=== PATIENT | male | born 1980 | race Caucasian/White ===

== ENCOUNTER → 2017-01-29 13:44 | Emergency (ER) | payer BC, OTHER ==
[~2017-01-29 13:44] MED LIST: Ibuprofen TAB* 800 MG PO ONE
[2017-01-29 14:00] VITALS: BP 128/87
--- NOTE | 2017-01-29 16:36 | RAD ---
Indication: Progressive RIGHT shoulder pain for one week. Possible rotator cuff tear. Unknown injury. Comparison: No relevant prior exams available on the [facility] PACS for comparison. Technique: Internal rotation AP, external rotation Grashey, scapular Y, axillary views RIGHT shoulder Report: Normal acromioclavicular and glenohumeral joint alignment. Negative for fracture. Mild acromioclavicular joint osteophytosis and subchondral sclerosis and cystic change. Mild sclerosis at the greater tuberosity of the humerus which may be seen in setting of chronic rotator cuff pathology. Negative for glenohumeral joint space narrowing. Negative for stigmata of calcific tendinopathy or abnormal soft tissue contour. IMPRESSION: 1. 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 2. Stigmata of potential chronic rotator cuff pathology.
--- NOTE | 2017-01-29 17:00 | ED ---
Upper Extremity Pain - HPI Summary HPI Summary: Rt hand dominant pt here w/ Rt shoulder pain - worse w/ abduction and flexion past 90 degrees. No marc trauma - just getting progressively worse over past few weeks. Thinks he may have torn something. 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 Denies neck pain or skin changes - no change. Tried girlfriend's tramadol for pain w/o relief - unsure of dose. States marijuana and heat help sometimes as well. Has pain at night trying to sleep. - History of Current Complaint Chief Complaint: EDExtremityUpper Stated Complaint: RT SHOULDER PAIN Time Seen by Provider: 01/29/17 15:21 Hx Obtained From: Patient - Allergies/Home Medications Allergies/Adverse Reactions: Allergies Allergy/AdvReac Type Severity Reaction Status Date / Time Codeine Allergy Severe Anaphylatic Verified 01/29/17 13:52 Shock Iodine Allergy Hives Verified 01/29/17 13:52 Latex Allergy Skin Verified 01/29/17 13:52 Irritation Povidone Iodine Allergy Hives Verified 01/29/17 13:52 [From Betadine] PMH/Surg Hx/FS Hx/Imm Hx Previously Healthy: Yes Endocrine/Hematology History: Denies: Hx Anticoagulant Therapy, Hx Blood Disorders, Hx Diabetes, Hx Sickle Cell Disease, Hx Thyroid Disease Cardiovascular History: Reports: Hx Hypertension - WELL CONTROLLED Denies: Other Cardiovascular Problems/Disorders Respiratory History: Denies: Hx Asthma, Hx Chronic Obstructive Pulmonary Disease (COPD), Other Respiratory Problems/Disorders GI History: Reports: Hx Gastroesophageal Reflux Disease - SURGERY AGE 16 Denies: Hx Ulcer, Other GI Disorders History: Reports: Hx Kidney Stones - BILAT Musculoskeletal History: Denies: Other Musculoskeletal History Sensory History: Reports: Hx Contacts or Glasses - CONTACTS, WILL USE GLASSES DOS Denies: Hx Hearing Aid Opthamlomology History: Reports: Hx Contacts or Glasses - CONTACTS, WILL USE GLASSES DOS Neurological History: Reports: Hx Migraine - OCCAS Denies: Other Neuro Impairments/Disorders Psychiatric History: Reports: Hx Anxiety - ON MED, Hx Depression - ON MED - Surgical History Surgery Procedure, Year, and Place: RIGHT MASTOID SURGERY 20 YRS AGO, [facility] "STOMACH WRAP" @ AGE 16, [facility]. LITHOTRIPSY X2 [facility]. CYSTO STENT [facility] Hx Anesthesia Reactions: No Infectious Disease History: No Infectious Disease History: Denies: Hx Hepatitis, Hx Human Immunodeficiency Virus (HIV), Traveled Outside the [place] in Last 30 Days - Social History Lives: With Family Alcohol Use: Rare Hx Substance Use: Yes Substance Use Type: Reports: Marijuana Substance Use Comment - Amount & Last Used: DAILY USE OF MARIJUANA Hx Tobacco Use: Yes Smoking Status (MU): Never Smoked Tobacco Type: Smokeless Tobacco Review of Systems Constitutional: Negative Negative: Fever, Chills, Fatigue Musculoskeletal: Other - see HPI Skin: Negative Negative: Rash, Bruising Neurological: Other - see HPI Psychological: Normal All Other Systems Reviewed And Are Negative: Yes Physical Exam Triage Information Reviewed: Yes Vital Signs On Initial Exam: Initial Vitals Temp Pulse Resp BP Pulse Ox 98.4 F 67 16 128/87 98 01/29/17 13:52 01/29/17 13:52 01/29/17 13:52 01/29/17 13:52 01/29/17 13:52 Vital Signs Reviewed: Yes Appearance: Positive: Well-Appearing, No Pain Distress - at rest, Obese Skin: Positive: Warm, Dry - no erythema, no ecchymosis over affected area Head/Face: Positive: Normal Head/Face Inspection Eyes: Positive: EOMI ENT: Positive: Hearing grossly normal Respiratory/Lung Sounds: Positive: Breath Sounds Present Cardiovascular: Positive: Pulses are Symmetrical in both Upper and Lower Extremities - no edema of Rt UE Musculoskeletal: Positive: Strength/ROM Intact - Rt elbow, wrist and fingers, Limited @ - Rt shoulder limited 2ndry to pain - active ROM past 90 degrees abduction triggers significant pain. Negative: Other - NTTP Neurological: Positive: Normal, Sensory/Motor Intact, Alert, Oriented to Person Place, Time, CN Intact II-III Psychiatric: Positive: Normal - Orsi Coma Scale Coma Scale Total: 15 Diagnostics - Vital Signs Vital Signs Temp Pulse Resp BP Pulse Ox 01/29/17 13:52 98.4 F 67 16 128/87 98 - Laboratory Lab Statement: Any lab studies that have been ordered have been reviewed, and results considered in the medical decision making process. Re-Evaluation - Re-Evaluation First Eval Change: Improved - better w/ ice, sling and ibuprofen Course/Dx - Diagnoses Provider Diagnoses: Injury of right rotator cuff Discharge - Discharge Plan Condition: Stable Disposition: HOME Prescriptions: Ibuprofen TAB* [Motrin TAB* 800 MG] 800 mg PO Q8HR PRN #20 tab PRN Reason: Pain oxyCODONE/Acetamin 5/325 MG* [Percocet 5/325 TAB*] 1 tab PO Q8H PRN #10 tab MDD 3 PRN Reason: Pain Patient Education Materials: Rotator Cuff Injury (ED) Forms: *Work Release Referrals: Andie Hayes MD [Primary Care Provider] - Madai Pope MD [Medical Doctor] - Additional Instructions: Rest in sling while up and about - otherwise remove and gently move shoulder to prevent frozen shoulder (aka Adhesive Capsulitis) Follow-up with orthopedics. Call today to schedule an appointment. In the meantime, you may take ibuprofen with food for pain. *If pain is not controlled enough to sleep, you may take norco - this is a narcotic pain med and may cause habituation. If you feel you are developing dependence, please stop medication and seek medical attention. This medication may cause drowsiness - do not operate machinery, climb, etc while taking. *If you develop numbness, weakness, coolness of extremity, return to ED
== END | disposition home or self-care (01) ==
LOC: ED 13:44
DX: S46.001A Unspecified injury of muscle(s) and tendon(s) of the rotator cuff of right shoulder, initial encounter (principal); X58.XXXA Exposure to other specified factors, initial encounter; Y92.9 Unspecified place or not applicable; I10 Essential (primary) hypertension; K21.9 Gastro-esophageal reflux disease without esophagitis; F41.8 Other specified anxiety disorders
CPT/HCPCS: A9270-GY

== ENCOUNTER 2017-07-29 15:29 | Emergency (ER) | payer BC ==
[2017-07-29] MEDS ORDERED: Nitroglycerin TAB 0.4 MG* 0.4 MG TAB SL ONE (15:54)
[2017-07-29] MEDS ORDERED: Aspirin Low Dose CHEW TAB* 81 MG PO ONE (15:54)
[2017-07-29] MEDS ORDERED: Nitroglycerin TAB 0.4 MG* 0.4 MG TAB ONE (15:54)
[2017-07-29] MEDS ORDERED: Aspirin Low Dose CHEW TAB* 81 MG ONE (15:55)
[2017-07-29 16:22] VITALS: BP 138/90
--- NOTE | 2017-07-29 18:56 | UC ---
Ander Marin Rebecca, scribed for Jerrod Weir MD on 07/29/17 at 1619 . Cardiac HPI - HPI Summary HPI Summary: Pt is a 36 y/o M who presents to [facility] c/o CP. Pain began this morning, waking him up from sleep at approximately 0900. At onset, pain was moderate, ranked 6/ 10 and described as pressure and heaviness. Pain is located on the left side of the chest without radiation to the back, jaw, and arm. Pain has been constant since onset without change. Sx aggravated and alleviated by nothing. Additionally c/o nausea, SOB and anxiety. Denies vomiting. PMHx HTN, HLD, and pre-diabetic. FHx CAD (father at age 28). SHx no smoking, rare alcohol intake and marijuana use. PSHx hiatal hernia repair. 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 Accompanied by significant other that can transport the patient to the ED. - History of Current Complaint Stated Complaint: ANXIOUS Time Seen by Provider: 07/29/17 15:47 Hx Obtained From: Patient Onset/Duration: Still Present Timing: Constant Initial Severity: Moderate Current Severity: Moderate Pain Intensity: 6 Chest Pain Location: Left Anterior Character: Heaviness, Pressure/Squeezing Aggravating Factor(s): Nothing Alleviating Factor(s): Nothing Associated Signs & Symptoms: Positive: Chest Pain, SOB, Nausea/Vomiting - nausea - Allergy/Home Medications Allergies/Adverse Reactions: Allergies Allergy/AdvReac Type Severity Reaction Status Date / Time codeine Allergy Anaphylatic Verified 07/29/17 16:46 Shock Iodine and Iodide Containing Allergy Hives Verified 07/29/17 16:46 Produc Latex, Natural Rubber Allergy Rash Verified 07/29/17 16:46 Home Medications: Home Medications FLUoxetine CAP* [PROzac CAP*] 80 mg PO DAILY 07/29/17 [History Confirmed ] Ibuprofen TAB* [Motrin TAB* 800 MG] 800 mg PO PRN 07/29/17 [History] PMH/Surg Hx/FS Hx/Imm Hx - Additional Past Medical History Additional PMH: PMHx: HTN, HLD, pre-diabetic Other History Of: Negative For: Anticoagulant Therapy - Surgical History Surgical History: Yes Surgery Procedure, Year, and Place: RIGHT MASTOID SURGERY 20 YRS AGO, [place]. "STOMACH WRAP" @ AGE 16, [facility] [place]. LITHOTRIPSY X2 [facility]. CYSTO STENT [facility] - Family History Known Family History: Positive: Cardiac Disease - Father had STEMI at 28 y/o - Social History Alcohol Use: Rare Substance Use Type: Marijuana Substance Use Comment - Amount & Last Used: DAILY USE OF MARIJUANA Smoking Status (MU): Never Smoked Tobacco Type: Smokeless Tobacco Review of Systems Constitutional: Negative Skin: Negative Eyes: Negative ENT: Negative Respiratory: Shortness Of Breath Cardiovascular: Chest Pain Gastrointestinal: Nausea Genitourinary: Negative Motor: Negative Neurovascular: Negative Musculoskeletal: Negative Neurological: Negative Psychological: Anxious All Other Systems Reviewed And Are Negative: Yes Physical Exam - Summary Physical Exam Summary: VITAL SIGNS: Reviewed. GENERAL: ~Patient is a well developed and mildly obese male who is lying comfortable in the stretcher. ~Patient is not in any acute respiratory distress. HEAD AND FACE: Normocephalic EYES: PERRLA, EOMI x 2. EARS: Hearing grossly intact. MOUTH: Oropharynx within normal limits. NECK: Supple, trachea is midline, no adenopathy, no JVD, no carotid bruit. CHEST: Symmetric, no tenderness at palpation LUNGS: Clear to auscultation bilaterally. No wheezing or crackles. CVS: Regular rate and rhythm, S1 and S2 present, no murmurs or gallops appreciated. ABDOMEN: Soft, non-tender. Bowel sounds are normal. No abdominal abnormal pulsations. EXTREMITIES: Full ROM in all major joints, no edema, no cyanosis or clubbing. NEURO: Alert and oriented x 3. No acute neurological deficits. Speech is normal and follows commands. SKIN: Dry and warm Triage Information Reviewed: Yes Vital Signs: Initial Vital Signs Temp 98.2 F 07/29/17 15:49 Pulse 88 07/29/17 15:49 Resp 16 07/29/17 15:49 BP 141/95 07/29/17 15:49 Pulse Ox 94 07/29/17 15:49 Vital Signs Reviewed: Yes Diagnostics - EKG Cardiac Rate: NL - sinus rhythm 71 BPM Cardiac Rhythm: Sinus: Normal Ectopy: None ST Segment: Normal - No ST elevations - Assessment/Plan Course Of Treatment: Pt is a 36 y/o M who presents to [facility] c/o since morning, waking him up from sleep at approximately 0900. At onset, pain was moderate, ranked 6/10 and described as pressure and heaviness. Pain is located on the left side of the chest without radiation to the back, jaw, and arm. Pain has been constant since onset without change. Additionally c/o nausea, SOB and anxiety. Denies vomiting. PMHx HTN, HLD, and pre-diabetic. FHx CAD (father at age 28). SHx no smoking, rare alcohol intake and marijuana use. PSHx hiatal hernia repair. 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 Accompanied by significant other that can transport the patient to the ED. EKG is sinus rhythm with no ST elevations. In the [facility]CE[facility] course, pt received ASA and NTG. Patient declined ambulance transport. He will be D/C with Dx of CP r/o ACS with directions to go immediately to the ED for further evaluation and workup. He and his girlfriend understand and agree. Allergies noted. The patient was found to have increase BP in UC. The patient will follow up with PCP for better control of BP. - Differential Diagnoses - Chest Pain Differential Diagnosis/HQI/PQRI: Acute NH, ACS, Angina, CHF, Chest Wall, GI Disease, Lower Respiratory Infection - Clinical Impression Provider Diagnoses: Chest pain r/o ACS - Physician Notifications Discussed Patient Care With: [facility] ED Time Discussed With Above Provider: 15:57 Instructed by Provider To: Other - Discussed case with the current doctor at the ED, making him aware of the patient. Discharge - Sign-Out/Discharge Documenting (check all that apply): Discharge - Discharge Plan Condition: Stable Disposition: HOME Patient Education Materials: Angina (ED), Chest Pain (DC) Referrals: Mp Coffman MD [Primary Care Provider] - Additional Instructions: FOLLOW UP WITH YOUR PRIMARY CARE PROVIDER WITHIN ONE WEEK FOR HIGH BLOOD PRESSURE NOTED TODAY. Patient will be discharged to the ED for further assessment. Declined ambulance. - Billing Disposition and Condition Condition: STABLE Disposition: HOME The documentation as recorded by the Ander raygoza Rebecca accurately reflects the service I personally performed and the decisions made by me, Jerrod Weir MD.
== END 2017-07-29 16:22 | disposition home or self-care (01) ==
LOC: UCEAST 15:29
DX: R07.89 Other chest pain (principal); R06.02 Shortness of breath; R11.0 Nausea; F41.9 Anxiety disorder, unspecified; I10 Essential (primary) hypertension; R73.03 Prediabetes; E78.6 Lipoprotein deficiency; Z88.5 Allergy status to narcotic agent; Z88.3 Allergy status to other anti-infective agents; Z91.040 Latex allergy status
CPT/HCPCS: 93005; 99212; A9270-GY; G0463

== ENCOUNTER 2017-07-29 16:31 | Emergency (ER) | payer BC ==
--- NOTE | 2017-07-29 17:23 | RAD ---
HISTORY: Chest pain COMPARISONS: February 15, 2014 VIEWS: 1: frontal portable view of the chest at 5:18 PM FINDINGS: LINES AND TUBES: None. CARDIOMEDIASTINAL SILHOUETTE: The cardiomediastinal silhouette is normal for portable technique. PLEURA: The costophrenic angles are sharp. No pleural abnormalities are noted. LUNG PARENCHYMA: The lungs are clear. ABDOMEN: The upper abdomen is clear. There is no subphrenic gas. BONES AND SOFT TISSUES: No bone or soft tissue abnormalities are noted. IMPRESSION: NO ACTIVE CARDIOPULMONARY DISEASE.
[2017-07-29 17:28] LABS: ABS Basophils 0.1 10^3/ul (0-0.2); ABS Eosinophils 0.2 10^3/ul (0-0.6); ABS Lymphocytes 2.8 10^3/ul (1.0-4.8); ABS Monocytes 0.8 10^3/ul (0-0.8); ABS Neutrophils 5.6 10^3/ul (1.5-7.7); ABS Nucleated RBC 0 10^3/ul; Eosinophil % 1.9 % (0-6); Hematocrit 44 % (42-52); Hemoglobin 15.1 g/dl (14.0-18.0); Lymphocyte % 29.4 % (25-47); Mean Corpuscular HGB Conc 34 g/dl (31-36); Mean Corpuscular Hemoglobin 30 pg (27-31); Mean Corpuscular Volume 87 fL (80-94); Nucleated Red Blood Cells % 0; Platelet Count 234 10^3/ul (150-450); Red Cell Distribution Width 14 % (10.5-15); White Blood Count 9.4 10^3/ul (3.5-10.8)
[2017-07-29 17:45] LABS: EGFR Non-African American 80.8 (>60)
[2017-07-29 18:34] VITALS: BP 146/83
--- NOTE | 2017-07-29 19:24 | ED ---
Jose Guadalupe Marin Julia, scribed for Eusebio Burroughs MD on 07/29/17 at 1656 . HPI Chest Pain - HPI Summary HPI Summary: This patient is a 36 year old M presenting to [facility] with a chief complaint of constant mid-sternal chest pain described as discomfort and heaviness since this morning that woke him up from sleep around 09:00. Patient reports SOB and nausea. The patient rates the pain 5/10 in severity. Patient believes he is having a panic attack because symptoms are similar to previous panic attacks. His fathers first NC was at age 28. He reports recent stress with dad dying of colon CA and additional stress at work. He states he usually has relief from panic attack symptoms with Xanax, but he does not have a current prescription because he just began with a new primary care provider, Dr. Coffman, a couple weeks ago. Patient has a history of HTN, depression, borderline diabetes , and high cholesterol. - History of Current Complaint Chief Complaint: EDChestPainROMI Time Seen by Provider: 07/29/17 16:51 Hx Obtained From: Patient Onset/Duration: Started Hours Ago Time of Onset: 09:00 Timing: Constant Pain Intensity: 5 Pain Scale Used: 0-10 Numeric Chest Pain Location: Mid Sternal Character: Heaviness - and discomfort Associated Signs and Symptoms: Positive: Chest Pain, Shortness of Breath, Nausea Related History: Similar Episode/Dx as: - panic attack - Allergy/Home Medications Allergies/Adverse Reactions: Allergies Allergy/AdvReac Type Severity Reaction Status Date / Time codeine Allergy Anaphylatic Verified 07/29/17 16:46 Shock Iodine and Iodide Containing Allergy Hives Verified 07/29/17 16:46 Produc Latex, Natural Rubber Allergy Rash Verified 07/29/17 16:46 PMH/Surg Hx/FS Hx/Imm Hx Endocrine/Hematology History: Reports: Hx Diabetes - PRE-DIABETIC Denies: Hx Anticoagulant Therapy, Hx Blood Disorders, Hx Sickle Cell Disease , Hx Thyroid Disease Cardiovascular History: Reports: Hx Hypercholesterolemia, Hx Hypertension - WELL CONTROLLED Denies: Other Cardiovascular Problems/Disorders Respiratory History: Denies: Hx Asthma, Hx Chronic Obstructive Pulmonary Disease (COPD), Other Respiratory Problems/Disorders GI History: Reports: Hx Gastroesophageal Reflux Disease - SURGERY AGE 16 Denies: Hx Ulcer, Other GI Disorders History: Reports: Hx Kidney Stones - BILAT Musculoskeletal History: Denies: Other Musculoskeletal History Sensory History: Reports: Hx Contacts or Glasses - CONTACTS, WILL USE GLASSES DOS Denies: Hx Hearing Aid Opthamlomology History: Reports: Hx Contacts or Glasses - CONTACTS, WILL USE GLASSES DOS Neurological History: Reports: Hx Migraine - OCCAS Denies: Other Neuro Impairments/Disorders Psychiatric History: Reports: Hx Anxiety - ON MED, Hx Depression - ON MED - Surgical History Surgery Procedure, Year, and Place: RIGHT MASTOID SURGERY 20 YRS AGO, [place] AGE 16[place] [facility] [place] [facility]. [facility]STO STENT [facility] Hx Anesthesia Reactions: No Infectious Disease History: Yes Infectious Disease History: Reports: Hx Shingles Denies: Hx Hepatitis, Hx Human Immunodeficiency Virus (HIV), Traveled Outside the [place] in Last 30 Days - Family History Known Family History: Positive: Cardiac Disease - father - NC age 28, Other - father - colon CA - Social History Occupation: Employed Full-time - works evenings Lives: With Family Alcohol Use: Rare Hx Substance Use: Yes Substance Use Type: Reports: Marijuana Substance Use Comment - Amount & Last Used: DAILY USE OF MARIJUANA Hx Tobacco Use: Yes Smoking Status (MU): Never Smoked Tobacco Type: Smokeless Tobacco Review of Systems Positive: Chest Pain Positive: Shortness Of Breath Positive: Nausea All Other Systems Reviewed And Are Negative: Yes Physical Exam - Summary Physical Exam Summary: Appearance: The patient is well-nourished in no acute distress and in no acute pain. Skin: The skin is warm and dry and skin color reflects adequate perfusion. HEENT: The head is normocephalic and atraumatic. The pupils are equal and reactive. The conjunctivae are clear and without drainage. Nares are patent and without drainage. Mouth reveals moist mucous membranes and the throat is without erythema and exudate. The external ears are intact. The ear canals are patent and without drainage. The tympanic membranes are intact. Neck: the neck is supple with full range of motion and non-tender. There are no carotid bruits. There is no neck vein distension. Respiratory: Chest is non-tender. Lungs are clear to auscultation and breath sounds are symmetrical and equal. Cardiovascular: Heart is regular rate and rhythm. There is no murmur or rub auscultated. There is no peripheral edema and pulses are symmetrical and equal. Abdomen: The abdomen is soft and non-tender. There are normal bowel sounds heard in all four quadrants and there is no organomegaly palpated. Musculoskeletal: There is no back tenderness noted. Extremities are non-tender with full range of motion. There is good capillary refill. There is no peripheral edema or calf tenderness elicited. Neurological: Patient is alert and oriented to person, place and time. The patient has symmetrical motor strength in all four extremities. Cranial nerves are grossly intact. Deep tendon reflexes are symmetrical and equal in all four extremities. Psychiatric: The patient has an appropriate affect and does not exhibit any anxiety or depression. Triage Information Reviewed: Yes Vital Signs On Initial Exam: Initial Vitals Temp Pulse Resp BP Pulse Ox 97.8 F 79 16 118/84 98 07/29/17 16:42 07/29/17 16:42 07/29/17 16:42 07/29/17 16:42 07/29/17 16:42 Vital Signs Reviewed: Yes Diagnostics - Vital Signs Vital Signs Temp Pulse Resp BP Pulse Ox 07/29/17 16:42 97.8 F 79 16 118/84 98 - Laboratory Lab Results: Lab Results 07/29/17 07/29/17 07/29/17 Range/Units 17:20 17:20 17:20 WBC 9.4 (3.5-10.8) 10^3/ul RBC 5.10 (4.0-5.4) 10^6/ul Hgb 15.1 (14.0-18.0) g/dl Hct 44 (42-52) % MCV 87 (80-94) fL MCH 30 (27-31) pg MCHC 34 (31-36) g/dl RDW 14 (10.5-15) % Plt Count 234 (150-450) 10^3/ul MPV 8.0 (7.4-10.4) um3 Neut % (Auto) 59.1 (38-83) % Lymph % (Auto) 29.4 (25-47) % [place] % (Auto) 8.6 H (0-7) % Eos % (Auto) 1.9 (0-6) % Baso % (Auto) 1.0 (0-2) % Absolute Neuts (auto) 5.6 (1.5-7.7) 10^3/ul Absolute Lymphs (auto) 2.8 (1.0-4.8) 10^3/ul Absolute Monos (auto) 0.8 (0-0.8) 10^3/ul Absolute Eos (auto) 0.2 (0-0.6) 10^3/ul Absolute Basos (auto) 0.1 (0-0.2) 10^3/ul Absolute Nucleated RBC 0 10^3/ul Nucleated RBC % 0 D-Dimer, Quantitative (Less Than 230) ng/mL Sodium 137 (133-145) mmol/L Potassium 3.8 (3.5-5.0) mmol/L Chloride 106 (101-111) mmol/L Carbon Dioxide 22 (22-32) mmol/L Anion Gap 9 (2-11) mmol/L BUN 19 (6-24) mg/dL Creatinine 1.03 (0.67-1.17) mg/dL Est GFR ( Amer) 103.9 (>60) Est GFR (Non-Af Amer) 80.8 (>60) BUN/Creatinine Ratio 18.4 (8-20) Glucose 96 (70-100) mg/dL Lactic Acid (0.5-2.0) mmol/L Calcium 10.3 (8.6-10.3) mg/dL Total Bilirubin 0.40 (0.2-1.0) mg/dL AST 32 (13-39) U/L ALT 59 H (7-52) U/L Alkaline Phosphatase 61 (34-104) U/L Troponin I 0.00 (<0.04) ng/mL B-Natriuretic Peptide 22 ( - 100) pg/mL Total Protein 7.1 (6.4-8.9) g/dL Albumin 4.5 (3.2-5.2) g/dL Globulin 2.6 (2-4) g/dL Albumin/Globulin Ratio 1.7 (1-3) TSH 1.36 (0.34-5.60) mcIU/mL 07/29/17 07/29/17 Range/Units 17:20 17:20 WBC (3.5-10.8) 10^3/ul RBC (4.0-5.4) 10^6/ul Hgb (14.0-18.0) g/dl Hct (42-52) % MCV (80-94) fL MCH (27-31) pg MCHC (31-36) g/dl RDW (10.5-15) % Plt Count (150-450) 10^3/ul MPV (7.4-10.4) um3 Neut % (Auto) (38-83) % Lymph % (Auto) (25-47) % [place] % (Auto) (0-7) % Eos % (Auto) (0-6) % Baso % (Auto) (0-2) % Absolute Neuts (auto) (1.5-7.7) 10^3/ul Absolute Lymphs (auto) (1.0-4.8) 10^3/ul Absolute Monos (auto) (0-0.8) 10^3/ul Absolute Eos (auto) (0-0.6) 10^3/ul Absolute Basos (auto) (0-0.2) 10^3/ul Absolute Nucleated RBC 10^3/ul Nucleated RBC % D-Dimer, Quantitative < 200 (Less Than 230) ng/mL Sodium (133-145) mmol/L Potassium (3.5-5.0) mmol/L Chloride (101-111) mmol/L Carbon Dioxide (22-32) mmol/L Anion Gap (2-11) mmol/L BUN (6-24) mg/dL Creatinine (0.67-1.17) mg/dL Est GFR ( Amer) (>60) Est GFR (Non-Af Amer) (>60) BUN/Creatinine Ratio (8-20) Glucose (70-100) mg/dL Lactic Acid 1.1 (0.5-2.0) mmol/L Calcium (8.6-10.3) mg/dL Total Bilirubin (0.2-1.0) mg/dL AST (13-39) U/L ALT (7-52) U/L Alkaline Phosphatase (34-104) U/L Troponin I (<0.04) ng/mL B-Natriuretic Peptide ( - 100) pg/mL Total Protein (6.4-8.9) g/dL Albumin (3.2-5.2) g/dL Globulin (2-4) g/dL Albumin/Globulin Ratio (1-3) TSH (0.34-5.60) mcIU/mL Result Diagrams: 07/29/17 17:20 07/29/17 17:20 Lab Statement: Any lab studies that have been ordered have been reviewed, and results considered in the medical decision making process. - Radiology CXR Radiology Interpretation Completed By: Radiologist - NO ACTIVE CARDIOPULMONARY DISEASE. ED Physician has reviewed this report. - EKG 1652 Cardiac Rate: NL - 72 BPM EKG Rhythm: Sinus Rhythm Re-Evaluation - Re-Evaluation 1 Re-Evaluation Time: 18:23 Comment: Discussed results with patient. Patient will be discharged. Chest Pain Course/Dx - Course Course Of Treatment: Mr. Feliciano presented with an atypical CP and a normal ECG. He has a significant family history. His W/U here was negative and he has had pain for over 8 hours. - Diagnoses Provider Diagnoses: Chest pain Discharge - Sign-Out/Discharge Documenting (check all that apply): Discharge - Discharge Plan Condition: Stable Disposition: HOME Patient Education Materials: Chest Pain (ED) Forms: *Work Release Referrals: Mp Coffman MD [Primary Care Provider] - As Soon As Possible (Follow up with your primary care physician.) - Billing Disposition and Condition Condition: STABLE Disposition: HOME The documentation as recorded by the Jose Guadalupe raygoza Julia accurately reflects the service I personally performed and the decisions made by me, Eusebio Burroughs MD.
== END 2017-07-29 18:31 | disposition home or self-care (01) ==
LOC: ED 16:31
DX: R07.9 Chest pain, unspecified (principal); R06.02 Shortness of breath; R11.0 Nausea
CPT/HCPCS: 36415; 71045; 80053; 83605; 83880; 84443; 84484; 85025; 85379; 93005; 99282

== ENCOUNTER 2017-09-14 14:51 | Emergency (ER) | payer BC ==
--- NOTE | 2017-09-14 20:16 | RAD ---
INDICATION: 2 weeks of back pain and "legs giving out" COMPARISON: None. TECHNIQUE: 3 views of the lumbar spine were obtained. FINDINGS: The vertebra are in normal alignment. No fracture is seen. Disc spaces appear maintained. IMPRESSION: No evidence of fracture or subluxation.
[2017-09-14 20:41] VITALS: BP 133/68
--- NOTE | 2017-09-14 23:00 | ED ---
Back Pain - HPI Summary HPI Summary: Patient is a 36-year-old male who presents emergency department for low back pain 2 weeks. Patient states he has had similar back pain in the past. Pain is located across low back and radiates into bilateral legs. Patient mitts intermittent tingling to left upper leg that is positional. He denies bowel or bladder incontinence or retention. Has tried taking Motrin for pain with minimal relief. Symptoms are mild in severity. 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 Bending and twisting makes symptoms worse. Lying flat makes symptoms better. - History of Current Complaint Chief Complaint: EDBackInjuryPain Stated Complaint: BACK PAIN Time Seen by Provider: 09/14/17 19:07 Hx Obtained From: Patient Pain Intensity: 0 Pain Scale Used: 0-10 Numeric - Allergies/Home Medications Allergies/Adverse Reactions: Allergies Allergy/AdvReac Type Severity Reaction Status Date / Time codeine Allergy Anaphylatic Verified 09/14/17 14:57 Shock Iodine and Iodide Containing Allergy Hives Verified 09/14/17 14:57 Produc Latex, Natural Rubber Allergy Rash Verified 09/14/17 14:57 PMH/Surg Hx/FS Hx/Imm Hx Previously Healthy: Yes Endocrine/Hematology History: Reports: Hx Diabetes - PRE-DIABETIC Denies: Hx Anticoagulant Therapy, Hx Blood Disorders, Hx Sickle Cell Disease , Hx Thyroid Disease Cardiovascular History: Reports: Hx Hypercholesterolemia, Hx Hypertension - WELL CONTROLLED Denies: Other Cardiovascular Problems/Disorders Respiratory History: Denies: Hx Asthma, Hx Chronic Obstructive Pulmonary Disease (COPD), Other Respiratory Problems/Disorders GI History: Reports: Hx Gastroesophageal Reflux Disease - SURGERY AGE 16 Denies: Hx Ulcer, Other GI Disorders History: Reports: Hx Kidney Stones - BILAT Musculoskeletal History: Denies: Other Musculoskeletal History Sensory History: Reports: Hx Contacts or Glasses - CONTACTS, WILL USE GLASSES DOS Denies: Hx Hearing Aid Opthamlomology History: Reports: Hx Contacts or Glasses - CONTACTS, WILL USE GLASSES DOS Neurological History: Reports: Hx Migraine - OCCAS Denies: Other Neuro Impairments/Disorders Psychiatric History: Reports: Hx Anxiety - ON MED, Hx Depression - ON MED - Surgical History Surgery Procedure, Year, and Place: RIGHT MASTOID SURGERY 20 YRS AGO, [facility] "STOMACH WRAP" @ AGE 16, [facility]. LITHOTRIPSY X2 [facility]. CYSTO STENT [facility] Hx Anesthesia Reactions: No Infectious Disease History: No Infectious Disease History: Reports: Hx Shingles Denies: Hx Hepatitis, Hx Human Immunodeficiency Virus (HIV), Traveled Outside the [place] in Last 30 Days - Family History Known Family History: Positive: Cardiac Disease - father - [place] age 28, Other - father - colon [place] - Social History Occupation: Employed Full-time Lives: With Family Alcohol Use: Occasionally Hx Substance Use: Yes Substance Use Type: Reports: Marijuana Substance Use Comment - Amount & Last Used: DAILY USE OF MARIJUANA Hx Tobacco Use: Yes Smoking Status (MU): Never Smoked Tobacco Type: Smokeless Tobacco Review of Systems Constitutional: Negative Negative: Fever, Chills Genitourinary: Negative Negative: incontinence Positive: Other - back pain Positive: Paresthesia. Negative: Weakness, Numbness All Other Systems Reviewed And Are Negative: Yes Physical Exam Triage Information Reviewed: Yes Vital Signs On Initial Exam: Initial Vitals Temp Pulse Resp BP Pulse Ox 97.8 F 84 16 130/103 98 09/14/17 14:52 09/14/17 14:52 09/14/17 14:52 09/14/17 14:52 09/14/17 14:52 Vital Signs Reviewed: Yes Appearance: Positive: Well-Appearing - Patient lying flat on bed in no acute distress. Head/Face: Positive: Normal Head/Face Inspection Eyes: Positive: Normal, GONZALO Neck: Positive: Supple Musculoskeletal: Positive: Other - Pain on palpation to the low mid back and bilateral SI joints. 5 out of 5 strength in bilateral lower extremities with flexion and dorsiflexion. Positive straight leg test bilaterally. No neurosensory deficits. Patient ambulating without difficulty. Neurological: Positive: Normal, CN Intact II-III Psychiatric: Positive: Normal Diagnostics - Vital Signs Vital Signs Temp Pulse Resp BP Pulse Ox 09/14/17 20:35 98.1 F 77 16 133/68 98 09/14/17 17:17 98.4 F 80 16 118/78 99 09/14/17 14:52 97.8 F 84 16 130/103 98 - Laboratory Lab Statement: Any lab studies that have been ordered have been reviewed, and results considered in the medical decision making process. Back Pain Course/Dx - Course Course Of Treatment: Patient presenting to the ER for atraumatic back pain. Patient is requesting an x-ray of his lumbar spine which was ordered and is negative for acute findings, reading per radiology. Suspect disc herniation. Patient has no evidence of cough syndrome. He is afebrile. Will rx pain medication steroids and muscle relaxer. Advised patient to call his family doctor tomorrow for close follow-up appointment for further evaluation and possible MRI in the future. He is to avoid heavy lifting. To return to ER symptoms change or worsen. She understands and agrees with plan. - Diagnoses Differential Diagnosis/HQI/PQRI: Positive: Arthritis, Herniated Disc, Strain, Sprain Provider Diagnoses: Lumbar strain Discharge - Sign-Out/Discharge Documenting (check all that apply): Discharge/Admit/Transfer - Discharge Plan Condition: Good Disposition: HOME Prescriptions: Cyclobenzaprine TAB* [Flexeril 10 MG TAB*] 10 mg PO TID PRN #12 tab PRN Reason: Pain Hydrocodone/Acetaminophen [Hydrocodone-Acetamin 5-325 mg] 1 each PO Q6H #12 tablet MDD 4 TABLETS methylPREDNISolone [Medrol Dosepak 4 MG*] 0 mg PO .SEE BJ INSTRUCTION #1 tab Patient Education Materials: Lumbar Disc Herniation (ED), Low Back Strain (ED) Forms: *Work Release Referrals: Mp Coffman MD [Primary Care Provider] - Additional Instructions: Call PCP tomorrow for an appointment Medications as directed Return to ER if symptoms change or worsen - Billing Disposition and Condition Condition: GOOD Disposition: HOME
== END 2017-09-14 20:35 | disposition home or self-care (01) ==
LOC: ED 14:51
DX: S39.012A Strain of muscle, fascia and tendon of lower back, initial encounter (principal); M54.9 Dorsalgia, unspecified; Z72.0 Tobacco use; X58.XXXA Exposure to other specified factors, initial encounter; Y92.9 Unspecified place or not applicable
CPT/HCPCS: 72100; 99282

== ENCOUNTER 2017-11-06 14:44 | Observation (INO) | payer BC ==
[2017-11-06] MEDS ORDERED: NS 0.9% 1000 ML* 1,000 ML IV ONE (16:00)
[2017-11-06] MEDS ORDERED: Ondansetron INJ* 2 MG/ML VIAL IV ONE (16:13)
[2017-11-06 16:25] LABS: ABS Basophils 0.1 10^3/ul (0-0.2); ABS Eosinophils 0.2 10^3/ul (0-0.6); ABS Lymphocytes 2.4 10^3/ul (1.0-4.8); ABS Monocytes 0.6 10^3/ul (0-0.8); ABS Neutrophils 5.5 10^3/ul (1.5-7.7); ABS Nucleated RBC 0 10^3/ul; Eosinophil % 1.8 % (0-6); Hematocrit 44 % (42-52); Hemoglobin 14.6 g/dl (14.0-18.0); Lymphocyte % 27.5 % (25-47); Mean Corpuscular HGB Conc 34 g/dl (31-36); Mean Corpuscular Hemoglobin 29 pg (27-31); Mean Corpuscular Volume 88 fL (80-94); Mean Platelet Volume 7.9 um3 (7.4-10.4); Nucleated Red Blood Cells % 0; Platelet Count 226 10^3/ul (150-450); Red Blood Count 4.97 10^6/ul (4.00-5.40); Red Cell Distribution Width 14 % (10.5-15); White Blood Count 8.8 10^3/ul (3.5-10.8)
[2017-11-06 16:39] LABS: EGFR Non-African American 85.6 (>60)
--- NOTE | 2017-11-06 16:50 | RAD ---
INDICATION: Seizure COMPARISON: Similar examination dated October 09, 2015 TECHNIQUE: Contiguous axial sections of the brain were obtained from the skull base to the vertex without contrast. FINDINGS: Unless otherwise specified comparisons below reference the October 09, 2015 CT of the brain. The ventricles, cisterns and sulci are within normal limits. The chaney-white matter differentiation is adequately maintained and there is no sulcal effacement. No significant focal abnormality or mass effect is present. There is no evidence for intracranial hemorrhage. No significant focal osseous abnormality is present. There is mild mucosal thickening of the anterior ethmoid air cells. Similar the prior CT brain, the right mastoid air cells are hypoplastic. The left mastoid air cells are adequately aerated. IMPRESSION: No acute intracranial abnormality.
--- NOTE | 2017-11-06 17:10 | RAD ---
INDICATION: Stiff neck. No trauma. COMPARISON: CT cervical spine October 09, 2015 TECHNIQUE: Noncontrast axial source images was performed from the skull base to the thoracic inlet. Coronal and and sagittal reformatted images were generated. FINDINGS: Vertebrae: There is no fracture or acute focal bony lesion. There are arthritic changes with uncinate process spurring and posterior spondylitic ridge formation from C4 through C7. There is anterior vertebral spurring as well with minor disc space narrowing at C5-C6. There is minor foraminal narrowing at C5-C6 on the right. These findings are stable. Alignment: The craniocervical junction appears normal. Loss of normal cervical lordosis with cervical spine straightening, unchanged. Central Canal: There are no other significant CT abnormalities of the central canal or foramina. MR imaging is a more sensitive method to evaluate the canal and foramina. Intervertebral disc spaces: The remaining disc spaces are maintained. Brain: The visualized brain appears unremarkable. Soft tissues: The visualized soft tissue elements of the neck are unremarkable. The prevertebral soft tissues appear normal. The lung apices are clear. IMPRESSION: MILD MIDCERVICAL OSTEOARTHRITIC CHANGES. NO ACUTE FINDINGS
--- NOTE | 2017-11-06 17:12 | RAD ---
Indication: Back pain after fall. CT of the lumbar spine was obtained in axial plane. Vertebral bodies appear normal in height. No compression fracture is noted. At L1-L2, L2 through, L3-L4 and L4-L5 no disc protrusion is identified. IMPRESSION: No fracture of the lumbar spine is noted.
--- NOTE | 2017-11-06 17:13 | RAD ---
INDICATION: Atraumatic back pain COMPARISON: None TECHNIQUE: Noncontrast axial source images was performed from the thoracic inlet to the level the hemidiaphragms. Coronal and and sagittal reformatted images were generated. FINDINGS: Vertebrae: There is no fracture or acute focal bony lesion. There is moderate anterior vertebral spurring of the mid and lower thoracic spine. There are endplate irregularities consistent with mild degenerative change. Alignment: The thoracic vertebrae are normally aligned. Central Canal: There are no significant CT abnormalities of the central canal or foramina. MR imaging is a more sensitive method to evaluate the canal and foramina. Intervertebral disc spaces: The disc spaces are maintained. Soft tissues: There are no paravertebral soft tissue abnormalities. IMPRESSION: MILD MID AND LOWER THORACIC OSTEOARTHRITIC CHANGES. NO ACUTE FINDINGS
--- NOTE | 2017-11-06 17:14 | ED ---
Neurological HPI - HPI Summary HPI Summary: Patient is a 36-year-old male presenting to the ED with . states 2 days ago he experienced what appeared to be seizure-like activity. He was sitting at the dinner table playing a game with his family and states his eyes rolled to the back of his head, his body stiffened up and he fell backwards hitting his head on the table and the seat on the way down. He was down for approximately 30 seconds and unresponsive. He became pale and she noted that he may have stopped breathing for a short time. After 30 seconds he arose and had no recollection of the events that just took place. He did not want to come to the ED at that time. Over the past 2 days he has had confusion , memory loss, visual disturbances is notably double vision, headache, fatigue, sleeping often and episodes of mixing up his words. He states "I feel drunk." Denies any history of known seizure disorder. History of hypertension, anxiety , depression and takes medications as scheduled for these. Denies any history of concussion. Denies any neuro history and has never seen a neurologist. He states prior to this episode he has been feeling somewhat confused over the past week and endorses back pain which may or may not be related to his confusion. Denies any fevers, sweats, chills. Denies any feeling ill otherwise. Vital signs are stable on arrival. He continues to eat and drink okay but has increased satiety. Denies any urinary symptoms and while patient states he has back pain at baseline, he comments that this is worse than usual. Denies any neck stiffness. - History of Current Complaint Chief Complaint: EDSeizure Stated Complaint: DIZZINESS/BACK PAIN Time Seen by Provider: 11/06/17 15:19 Hx Obtained From: Patient Onset/Duration: Sudden Onset Timing: Intermittent Episodes Lasting: - 30 seconds Onset Severity: Moderate Current Severity: Moderate Pain Intensity: 10 Pain Scale Used: 0-10 Numeric Frequency: Episodes x___ - 1, Episodes Lasting ____ (in Mins/Days/Weeks/Years) - 30 seconds Associated Signs and Symptoms: Positive: Negative - Allergy/Home Medications Allergies/Adverse Reactions: Allergies Allergy/AdvReac Type Severity Reaction Status Date / Time codeine Allergy Anaphylatic Verified 09/25/17 10:45 Shock Iodine and Iodide Containing Allergy Hives Verified 09/25/17 10:45 Produc Latex, Natural Rubber Allergy Rash Verified 09/25/17 10:45 Home Medications: Home Medications Ibuprofen TAB* [Advil TAB*] 400 mg PO Q6H PRN 11/06/17 [History Confirmed ] Lisinopril TAB* [Prinivil TAB*] 5 mg PO DAILY 11/06/17 [History Confirmed ] Sertraline* [Zoloft*] 150 mg PO DAILY 11/06/17 [History Confirmed 11/06/17] PMH/Surg Hx/FS Hx/Imm Hx Previously Healthy: Yes Endocrine/Hematology History: Denies: Hx Anticoagulant Therapy, Hx Blood Disorders, Hx Diabetes, Hx Sickle Cell Disease, Hx Thyroid Disease Cardiovascular History: Reports: Hx Hypercholesterolemia, Hx Hypertension - WELL CONTROLLED Denies: Hx Pacemaker/ICD, Other Cardiovascular Problems/Disorders Respiratory History: Denies: Hx Asthma, Hx Chronic Obstructive Pulmonary Disease (COPD), Other Respiratory Problems/Disorders GI History: Reports: Hx Gastroesophageal Reflux Disease - SURGERY AGE 16 Denies: Hx Ulcer, Other GI Disorders History: Reports: Hx Kidney Stones - BILAT Musculoskeletal History: Denies: Other Musculoskeletal History Sensory History: Reports: Hx Contacts or Glasses - CONTACTS, WILL USE GLASSES DOS Denies: Hx Hearing Aid Opthamlomology History: Reports: Hx Contacts or Glasses - CONTACTS, WILL USE GLASSES DOS Neurological History: Reports: Hx Migraine - OCCAS Denies: Other Neuro Impairments/Disorders Psychiatric History: Reports: Hx Anxiety - ON MED, Hx Depression - ON MED Denies: Hx Panic Disorder - Surgical History Surgery Procedure, Year, and Place: RIGHT MASTOID SURGERY 20 YRS AGO, [facility] "STOMACH WRAP" (GASTRIC REFLUX REPAIR) @ AGE 16, [facility]. LITHOTRIPSY X2 [facility]. CYSTO STENT [facility]. EAR TUBE - DRAINAGE Hx Anesthesia Reactions: No - Immunization History Hx Pertussis Vaccination: No Immunizations Up to Date: Unable to Obtain/Confirm Infectious Disease History: No Infectious Disease History: Reports: Hx Shingles Denies: Hx Hepatitis, Hx Human Immunodeficiency Virus (HIV), Traveled Outside the [place] in Last 30 Days - Family History Known Family History: Positive: Cardiac Disease - father - [place] age 28, Other - father - colon [place] - Social History Occupation: Employed Full-time Lives: With Family Alcohol Use: Occasionally Hx Substance Use: Yes Substance Use Type: Reports: Marijuana Substance Use Comment - Amount & Last Used: DAILY USE OF MARIJUANA Hx Tobacco Use: Yes Smoking Status (MU): Never Smoked Tobacco Type: Smokeless Tobacco Review of Systems Constitutional: Negative Negative: Fever, Chills, Fatigue, Skin Diaphoresis Positive: Blurred Vision - double vision Negative: Palpitations, Chest Pain Negative: Shortness Of Breath Genitourinary: Negative Positive: no symptoms reported, see HPI Positive: Arthralgia - diffuse back pain - worse in lower back. Negative: Myalgia Negative: Rash, Bruising Positive: Weakness, Syncope. Negative: Paresthesia, Numbness, Slurred Speech Negative: Anxious, Depressed All Other Systems Reviewed And Are Negative: Yes Physical Exam Triage Information Reviewed: Yes Vital Signs On Initial Exam: Initial Vitals Temp Pulse Resp BP Pulse Ox 98.8 F 74 18 135/96 98 11/06/17 14:54 11/06/17 14:54 11/06/17 14:54 11/06/17 14:54 11/06/17 14:54 Vital Signs Reviewed: Yes Appearance: Positive: Well-Appearing Diagnostics - Vital Signs Vital Signs Temp Pulse Resp BP Pulse Ox 11/06/17 17:00 76 18 97 11/06/17 16:55 72 21 130/87 97 11/06/17 16:00 73 11 99 11/06/17 15:55 79 19 138/92 97 11/06/17 15:25 76 137/93 96 11/06/17 14:54 98.8 F 74 18 135/96 98 - Laboratory Lab Results: Lab Results 11/06/17 11/06/17 11/06/17 Range/Units 16:16 16:17 16:17 WBC 8.8 (3.5-10.8) 10^3/ul RBC 4.97 (4.00-5.40) 10^6/ul Hgb 14.6 (14.0-18.0) g/dl Hct 44 (42-52) % MCV 88 (80-94) fL MCH 29 (27-31) pg MCHC 34 (31-36) g/dl RDW 14 (10.5-15) % Plt Count 226 (150-450) 10^3/ul MPV 7.9 (7.4-10.4) um3 Neut % (Auto) 62.9 (38-83) % Lymph % (Auto) 27.5 (25-47) % [place] % (Auto) 6.5 (0-7) % Eos % (Auto) 1.8 (0-6) % Baso % (Auto) 1.3 (0-2) % Absolute Neuts (auto) 5.5 (1.5-7.7) 10^3/ul Absolute Lymphs (auto) 2.4 (1.0-4.8) 10^3/ul Absolute Monos (auto) 0.6 (0-0.8) 10^3/ul Absolute Eos (auto) 0.2 (0-0.6) 10^3/ul Absolute Basos (auto) 0.1 (0-0.2) 10^3/ul Absolute Nucleated RBC 0 10^3/ul Nucleated RBC % 0 ESR Pending Sodium 138 (135-145) mmol/L Potassium 4.2 (3.5-5.0) mmol/L Chloride 105 (101-111) mmol/L Carbon Dioxide 25 (22-32) mmol/L Anion Gap 8 (2-11) mmol/L BUN 15 (6-24) mg/dL Creatinine 0.98 (0.67-1.17) mg/dL Est GFR ( Amer) 103.6 (>60) Est GFR (Non-Af Amer) 85.6 (>60) BUN/Creatinine Ratio 15.3 (8-20) Glucose 106 H (70-100) mg/dL Lactic Acid 1.7 (0.5-2.0) mmol/L Calcium 9.7 (8.6-10.3) mg/dL Total Bilirubin 0.40 (0.2-1.0) mg/dL AST 21 (13-39) U/L ALT 36 (7-52) U/L Alkaline Phosphatase 55 (34-104) U/L C-Reactive Protein 5.60 (<8.01) mg/L Total Protein 6.9 (6.4-8.9) g/dL Albumin 4.4 (3.2-5.2) g/dL Globulin 2.5 (2-4) g/dL Albumin/Globulin Ratio 1.8 (1-3) Result Diagrams: 11/06/17 16:17 11/06/17 16:16 Lab Statement: Any lab studies that have been ordered have been reviewed, and results considered in the medical decision making process. Course/Dx - Course Course Of Treatment: On physical examination, no neurologic deficits noted. Vital signs stable on arrival. He continues to feel confused, fatigued and feeling "not right." However, he denies any visual changes at this time. He is a and O 3. is at bedside. CT spine cervical, thoracic and lumbar obtained to assess for his acute on chronic back pain worse after his recent fall. Brain CT obtained which shows no acute intracranial abnormalities. Callout to neuro, Dr. Landry at 5:07 PM who recommends admit to hospitalist service, obtain an EEG, MRI and remain on telemetry. Discussed the case with Dr. Wong at 5:45 PM who agrees to admit patient. - Differential Dx Differential Diagnoses Neuro: Positive: Vasovagal Reaction, Other - seizure like activity - Diagnoses Provider Diagnoses: Syncope Discharge - Sign-Out/Discharge Documenting (check all that apply): Discharge/Admit/Transfer - Discharge Plan Condition: Fair Disposition: ADMITTED TO [facility] Referrals: Mp Coffman MD [Primary Care Provider] - - Billing Disposition and Condition Condition: FAIR Disposition: Admitted to [facility]
[2017-11-06] MEDS ORDERED: Ondansetron INJ* 2 MG/ML VIAL IV PRN (18:38)
[2017-11-06] MEDS ORDERED: Gadoteridol* (CONTRAST) 279.3 MG/ML 10 ML IV ONE (19:38)
[2017-11-06] MEDS: Acetaminophen TAB* 325 MG PO PRN (20:10)
[2017-11-06] MEDS: Enoxaparin(*) 40 MG/0.4 ML SYR SUBCUT SCH (20:10)
--- NOTE | 2017-11-06 20:10 | RAD ---
Indication: Severe dizziness and confusion following a witnessed seizure like episode Thursday evening. Hit head during seizure with brief loss of consciousness. Comparison: November 06, [address] Technique: [employer] Electra 1.5 Henny [id number] with GEM suite. MRI brain without and with contrast. 20 mL ProHance administered IV. Seizure protocol. Report: Diffusion series is negative for acute or subacute ischemia. Susceptibility series is negative for stigmata of hemosiderin deposition to indicate previous hemorrhage. Unremarkable cerebral sulci, cerebellar fissures, ventricles, and basal cisterns. Normal patterns of signal intensity throughout the cerebrum and posterior fossa. No intra or extra-axial lesions or fluid collections evident. Evident. Symmetric appearance of the temporal lobes. No developmental anomalies evident. No lesion to account for seizure activity identified. Preserved major intracranial flow-voids. Unremarkable orbital contents. 0.9 cm maximum dimension sharply circumscribed T2 hyperintense T1 hypointense nonenhancing lesion within the petrous mastoid junction portion of the RIGHT temporal bone peripheral to the membranous labyrinth is most consistent with an opacified dominant mastoid air space. In general the RIGHT mastoids are hypoplastic. This appearance is unchanged compared with a CT exam from October 09, 2015 without concern. Clear paranasal sinuses. IMPRESSION: #. Negative contrast-enhanced MRI of the brain. #. No lesion to account for seizure activity identified.
[2017-11-06] MEDS: NS 0.9% 1000 ML* 1,000 ML IV SCH (20:12)
--- NOTE | 2017-11-06 22:03 | HP ---
ADMITTING HISTORY AND PHYSICAL: DATE OF ADMISSION: 11/06/17 CHIEF COMPLAINT: Loss of consciousness and subsequent confusion. HISTORY OF PRESENT ILLNESS: The patient is a 36-year-old gentleman with history of previous renal calculi, which gradually progressed to ureterolithiasis, status post laser and stent insertion, depression and hypertension, who mentioned that while having a picnic with his family about 2 days prior to admission, he suddenly rolled his eyes and stopped responding, fell towards the bench of the picnic table, hitting his head on one of the tables, and was observed to have some diaphoresis and circumoral cyanosis at the time of the event. Per his and his family, who reiterated the story to him, he was down for at least about 30 seconds and when he came out of the event, he felt that he was confused. In fact, he mentions that he has been somewhat confused for the past 2 days. He declined his family's advise to seek immediate consultation in the ED. He mentions that he felt somewhat confused since the event. A few hours prior to admission, he mentioned that he has had some double vision and hence he was convinced by his family to go to the ER for further evaluation. By the time he reached the ED, his double vision has significantly improved and by the time that I came down from the ED, it has already resolved. In the ED, he received ondansetron and normal saline bolus of 1 L. PAST MEDICAL AND SURGICAL HISTORY: Renal calculi, depression, hypertension, mastoid surgery of the right ear due to middle ear infection in the past. ALLERGIES: To CODEINE, IODINE, and LATEX. FAMILY HISTORY: His father has stage IV cancer and has had only a remote smoking history, and significant coronary artery disease history diagnosed when his father was 28 years old and currently with stage IV cancer. Hypertension in his father, degenerative joint disease in his mother. 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 He denies smoking cigarettes, although he smokes marijuana every day. Denies any history of other illicit drug use nor substance abuse nor alcohol abuse. REVIEW OF SYSTEMS: The patient complains of some weakness, recent loss of consciousness as described above, and recent history of double vision and confusion. Other than this, he denied any headaches, fevers, chills, nausea at this time, vomiting, diarrhea, constipation, pain and/or increased frequency on urination, myalgias, arthralgias, throat pain or new skin lesions. The rest of the 14-point review of systems are otherwise unremarkable. PHYSICAL EXAMINATION GENERAL APPEARANCE: The patient is awake, alert, and oriented x3, not in acute distress. The patient is obese. VITAL SIGNS: Reveals the most recent vital signs of records with 130/87 blood pressure, 97% on room air, 18 per minute respiratory rate, 76 beats per minute. HEENT: Normocephalic, atraumatic. PERRLA. Extraocular muscles intact. Negative for icterus. Moist oral mucosa. Negative throat erythema. NECK: Soft, supple with no cervical lymphadenopathy. No JVD. CHEST: Clear to auscultation bilaterally. Good air entry. No wheezes, rales, or rhonchi. HEART: S1, S2 within normal limits. Regular rate and rhythm. No murmurs, rubs , or gallops. ABDOMEN: Soft, nondistended, nontender. Normoactive bowel sounds x4. EXTREMITIES: No cyanosis, clubbing, or edema. PSYCHIATRIC: No active psychosis, depression, suicidal or homicidal ideations. SKIN: Warm to touch. LABORATORIES AND IMAGING: Please see discussion below and all laboratories and imaging had been reviewed. ASSESSMENT AND PLAN: As follows: 1. Loss of consciousness accompanied by confusion. It is likely indicative of a seizure episode. The patient has not had any seizures in the past and claims no illicit drug use other than marijuana. It is possible that the increased THC and/or illicit marijuana could have possibly lowered his seizure threshold. We will check serum prolactin. Order an EEG and an MRI of his brain tomorrow. We will admit him in telemetry and will trend cardiac enzymes. Dr. Landry is already aware of patient and will request for an official consultation. 2. History of depression, stable. Continue sertraline. 3. Hypertension, well controlled. Continue lisinopril. 4. Obesity. Advised lifestyle modifications. We will check fasting lipid levels in the a.m. MRI of the brain to rule out cerebrovascular accident given his previous complaints of double vision that lasted for at least 12 hours. 5. Prophylaxis. We will place the patient on Lovenox. 6. Disposition. For a PT eval. [id number]/[facility] #: [id number] [facility]PITAL[facility]es[facility]
[2017-11-06] MEDS ORDERED: Ketorolac INJ* 15 MG/ML 1 ML VIAL IV PUSH ONE (22:06)
[2017-11-07 06:05] LABS: ABS Basophils 0 10^3/ul (0-0.2); ABS Eosinophils 0.2 10^3/ul (0-0.6); ABS Lymphocytes 2.6 10^3/ul (1.0-4.8); ABS Monocytes 0.6 10^3/ul (0-0.8); ABS Neutrophils 4.7 10^3/ul (1.5-7.7); ABS Nucleated RBC 0 10^3/ul; Eosinophil % 2.1 % (0-6); Hematocrit 39 % (42-52); Hemoglobin 13.7 g/dl (14.0-18.0); Mean Corpuscular HGB Conc 35 g/dl (31-36); Mean Corpuscular Hemoglobin 30 pg (27-31); Mean Corpuscular Volume 86 fL (80-94); Mean Platelet Volume 7.9 um3 (7.4-10.4); Nucleated Red Blood Cells % 0.1; Platelet Count 204 10^3/ul (150-450); Red Blood Count 4.54 10^6/ul (4.00-5.40); Red Cell Distribution Width 13 % (10.5-15); White Blood Count 8.2 10^3/ul (3.5-10.8)
[2017-11-07 06:25] LABS: EGFR Non-African American 82.7 (>60)
[2017-11-07] MEDS ORDERED: Lisinopril TAB* 5 MG PO SCH (09:00)
[2017-11-07] MEDS: NS 0.9% 1000 ML* 1,000 ML IV SCH (11:01)
[2017-11-07] MEDS: Sertraline* 50 MG TAB PO SCH (11:01)
--- NOTE | 2017-11-07 11:35 | EEG ---
ELECTROENCEPHALOGRAPHY REPORT: DATE OF STUDY: 11/07/17 LOCATION: He is an inpatient in room 441. REFERRING PROVIDER: Dr. Wong. CLINICAL PROBLEM: Episode of loss of consciousness the day prior to this recording. There was appar ently upward eye deviation and unresponsiveness. MEDICATIONS: Include: 1. Lisinopril. 2. Zofran. 3. Lovenox. 4. Sertraline. REPORT: This 16-channel EEG is remarkable for background rhythms consisting of well-formed posterior alpha rhythm at about 10 cycles per second, which is symmetric. Low voltage beta rhythms are seen b ifrontally. The patient is clinically awake. Activation procedures are not attempted. The patient does not appear to drowse or sleep during the recording. There are no focal, lateralized, or epilepti form abnormalities. CLINICAL IMPRESSION: Normal awake EEG. [id number]/[facility] #: [id number]
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
[2017-11-07] MEDS: traMADol TAB* 50 MG PO PRN (16:32)
--- NOTE | 2017-11-07 17:35 | PN ---
Subjective Date of Service: 11/07/17 Interval History: Pt seen and examined. Meds and labs reviewed. No O/N issues. ROS: Denied DOMINGUEZ/dizziness, F/C, N/V, CP, SOB, increased cough, sputum production , abd pain, diarrhea, constipation, dysuria, myalgias, arthralgias, throat pain , and new skin lesions. The rest of the 14 point ROS are unremarkable. PHYSICAL EXAM: GEN APPEARANCE: Awake, not in acute distress HEENT: NC/AT, PERRLA, moist oral mucosa, (-) throat erythema NECK: Soft, supple, (-) cervical LAD, (-)JVD HEART: S1S2 WNL, RRR, No MRG CHEST: CTA, BL, GAE, No W/R/R ABD: Soft, ND/NT, NABS 4x Q EXT: No C/C/E SKIN: Warm to touch PSYCH: No active psychosis, hallucinations, depression, SI/HI Objective Active Medications: Acetaminophen (Tylenol Tab*) 650 mg PO Q4H PRN PRN Reason: FEVER/PAIN Last Admin: 11/06/17 20:10 Dose: 650 mg Enoxaparin Sodium (Lovenox(*)) 40 mg SUBCUT Q24H LAURA Last Admin: 11/06/17 20:10 Dose: 40 mg Sodium Chloride (Ns 0.9% 1000 Ml*) 1,000 mls @ 75 mls/hr IV PER RATE [facility] Last Admin: 11/07/17 11:01 Dose: 75 mls/hr Lisinopril (Prinivil Tab*) 10 mg PO DAILY [facility] Ondansetron HCl (Zofran Inj*) 4 mg IV Q6H PRN PRN Reason: NAUSEA Last Admin: 11/06/17 22:16 Dose: 4 mg Sertraline HCl (Zoloft*) 150 mg PO DAILY LAURA Last Admin: 11/07/17 11:01 Dose: 150 mg Tramadol HCl (Ultram*) 100 mg PO Q8H PRN PRN Reason: PAIN Last Admin: 11/07/17 16:32 Dose: 100 mg Vital Signs - 8 hr 11/07/17 11/07/17 11/07/17 11:45 15:12 16:31 Temperature 98.9 F 98.4 F Pulse Rate 89 87 Respiratory 16 16 Rate Blood Pressure 153/98 174/96 147/90 (mmHg) O2 Sat by Pulse 99 99 Oximetry 11/07/17 16:32 Temperature Pulse Rate Respiratory 16 Rate Blood Pressure (mmHg) O2 Sat by Pulse Oximetry Oxygen Devices in Use Now: None Result Diagrams: 11/07/17 05:43 11/07/17 05:43 Additional Lab and Data: Lab Results 11/06/17 11/06/17 11/06/17 Range/Units 16:16 16:17 16:17 WBC 8.8 (3.5-10.8) 10^3/ul RBC 4.97 (4.00-5.40) 10^6/ul Hgb 14.6 (14.0-18.0) g/dl Hct 44 (42-52) % MCV 88 (80-94) fL MCH 29 (27-31) pg MCHC 34 (31-36) g/dl RDW 14 (10.5-15) % Plt Count 226 (150-450) 10^3/ul MPV 7.9 (7.4-10.4) um3 Neut % (Auto) 62.9 (38-83) % Lymph % (Auto) 27.5 (25-47) % Atkinson % (Auto) 6.5 (0-7) % Eos % (Auto) 1.8 (0-6) % Baso % (Auto) 1.3 (0-2) % Absolute Neuts (auto) 5.5 (1.5-7.7) 10^3/ul Absolute Lymphs (auto) 2.4 (1.0-4.8) 10^3/ul Absolute Monos (auto) 0.6 (0-0.8) 10^3/ul Absolute Eos (auto) 0.2 (0-0.6) 10^3/ul Absolute Basos (auto) 0.1 (0-0.2) 10^3/ul Absolute Nucleated RBC 0 10^3/ul Nucleated RBC % 0 ESR Pending Sodium 138 (135-145) mmol/L Potassium 4.2 (3.5-5.0) mmol/L Chloride 105 (101-111) mmol/L Carbon Dioxide 25 (22-32) mmol/L Anion Gap 8 (2-11) mmol/L BUN 15 (6-24) mg/dL Creatinine 0.98 (0.67-1.17) mg/dL Est GFR ( Amer) 103.6 (>60) Est GFR (Non-Af Amer) 85.6 (>60) BUN/Creatinine Ratio 15.3 (8-20) Glucose 106 H (70-100) mg/dL Lactic Acid 1.7 (0.5-2.0) mmol/L Calcium 9.7 (8.6-10.3) mg/dL Total Bilirubin 0.40 (0.2-1.0) mg/dL AST 21 (13-39) U/L ALT 36 (7-52) U/L Alkaline Phosphatase 55 (34-104) U/L C-Reactive Protein 5.60 (<8.01) mg/L Total Protein 6.9 (6.4-8.9) g/dL Albumin 4.4 (3.2-5.2) g/dL Globulin 2.5 (2-4) g/dL Albumin/Globulin Ratio 1.8 (1-3) Assess/Plan/Problems-Billing Assessment: - Patient Problems (1) Syncopal episodes Current Visit: Yes Status: Acute Code(s): R55 - SYNCOPE AND COLLAPSE SNOMED Code(s): 491267190 Comment: -Serum prolactin and TSH were found to be unremarkable -MRI of head and EEG found to be unremarkable -ACS and PE ruled out, respectively, with (-) troponins x3 and normal D-dimer -Pt not orthostatic -?Vasovagal during picnic??? -Unknown cause of possible syncope as suggested by Dr. Landry other than possible intermittent arrhythmia that has not yet been detected in telemetry -Given above impression, I think it is odell to not discharge him until a full syncopal workup has been done especially in the setting of possible arrhythmia -Awaiting 2Decho -Will order for carotid dopplers to evaluate for comorbidities usually associated with syncope, especially given obesity and family history -D/W Dr. Martines and will await any further recommendations; ?Event loop recorder on D/C??? Will defer (2) HTN (hypertension) Current Visit: Yes Status: Acute Code(s): I10 - ESSENTIAL (PRIMARY) HYPERTENSION SNOMED Code(s): 97465905 Comment: -Will increase Lisinopril to 10 mg PO q day (3) Depression Current Visit: Yes Status: Acute Code(s): F32.9 - MAJOR DEPRESSIVE DISORDER , SINGLE EPISODE, UNSPECIFIED SNOMED Code(s): 50249530 Comment: -Continue Sertraline (4) DVT prophylaxis Current Visit: Yes Status: Acute Code(s): SXB5626 - SNOMED Code(s): 050946193 Comment: -Continue Lovenox Status and Disposition: -As above
[2017-11-07] MEDS: Acetaminophen TAB* 325 MG PO PRN (19:56)
[2017-11-07] MEDS: Enoxaparin(*) 40 MG/0.4 ML SYR SUBCUT SCH (19:56)
[2017-11-08] MEDS: NS 0.9% 1000 ML* 1,000 ML IV SCH (00:37)
[2017-11-08] MEDS: traMADol TAB* 50 MG PO PRN (00:38)
[2017-11-08 06:25] LABS: ABS Basophils 0.1 10^3/ul (0-0.2); ABS Eosinophils 0.2 10^3/ul (0-0.6); ABS Lymphocytes 2.5 10^3/ul (1.0-4.8); ABS Monocytes 0.7 10^3/ul (0-0.8); ABS Neutrophils 5.9 10^3/ul (1.5-7.7); ABS Nucleated RBC 0 10^3/ul; Eosinophil % 1.9 % (0-6); Hematocrit 42 % (42-52); Hemoglobin 14.3 g/dl (14.0-18.0); Mean Corpuscular HGB Conc 35 g/dl (31-36); Mean Corpuscular Hemoglobin 30 pg (27-31); Mean Corpuscular Volume 87 fL (80-94); Mean Platelet Volume 8.2 um3 (7.4-10.4); Nucleated Red Blood Cells % 0.1; Platelet Count 215 10^3/ul (150-450); Red Blood Count 4.77 10^6/ul (4.00-5.40); Red Cell Distribution Width 13 % (10.5-15); White Blood Count 9.3 10^3/ul (3.5-10.8)
[2017-11-08] MEDS ORDERED: Lisinopril TAB* 10 MG PO SCH (09:00)
[2017-11-08] MEDS: Sertraline* 50 MG TAB PO SCH (09:25)
--- NOTE | 2017-11-08 09:57 | ECHO ---
Patient: BERTO YOO [facility] Rec#: [id number] : 1980 Date: 11/08/2017 Age: 36y Height: 172.7 cm / 68.0 in Weight: 119.8 kg / 264.0 lbs Sex: M BSA: 2.3 Room#: [facility] Admit Date#: 11/06/2017 Type: Inpatient Referring: Nagi Wong Reading: Mann Martines MD Cook Candy: Chantal Junior RN RDCS CC: Augustus LOREDO,Samason Transthoracic Echocardiogram Indication: Syncope BP: 122/84 HR: 60 Rhythm: NSR Findings History: HTN, obesity, renal calculi, depression, marijuana use Technical Comments: The study quality is fair. The study is technically limited due to patient body habitus. Completed at 0845. Left Ventricle: The left ventricular chamber size is normal. Mild concentric left ventricular hypertrophy is observed. Global left ventricular wall motion and contractility are within normal limits. There is normal left ventricular systolic function. The estimated ejection fraction is 55-60%. Normal left ventricular diastolic filling is observed. Left Atrium: The left atrial chamber size is normal. Right Ventricle: The right ventricular cavity size is normal. The right ventricular global systolic function is low normal. Right Atrium: The right atrial cavity size is normal. Aortic Valve: The aortic valve structure is not well visualized. The aortic valve leaflets are mildly thickened. There is no evidence of aortic regurgitation. There is no evidence of aortic stenosis. Mitral Valve: The mitral valve leaflets are mildly thickened. There is a trace of mitral regurgitation. There is no evidence of mitral stenosis. Tricuspid Valve: The tricuspid valve leaflets are normal. There is trace tricuspid regurgitation. Unable to estimate the right ventricular systolic pressure. There is no tricuspid stenosis. Pulmonic Valve: The pulmonic valve structure is not well visualized. There is trace to mild pulmonic regurgitation. There is no pulmonic stenosis. Pericardium: There is no significant pericardial effusion. A pericardial fat pad is visualized. Aorta: There is mild dilatation of the ascending aorta. There is no dilatation of the aortic arch. There is no dilation of the aortic root. Pulmonary Artery: The main pulmonary artery is not well visualized. Venous: The inferior vena cava is dilated. There is less than 50% respiratory change in the inferior vena cava dimension. Summary: There was not any prior study for comparison. Conclusions Mild concentric left ventricular hypertrophy is observed. Global left ventricular wall motion and contractility are within normal limits. The estimated ejection fraction is 55-60%. There is no evidence of aortic stenosis. There is a trace of mitral regurgitation. There is trace tricuspid regurgitation. Unable to estimate the right ventricular systolic pressure. There is no significant pericardial effusion. Measurements Name Value Normal Range RVDdMajor (2D) 3.9 cm (2.2 - 4.4) RAd ISD 4CH 4.4 cm (3.4 - 4.9) RA (A4C)W 3.3 cm (2.9 - 4.6) IVSd (2D) 1.2 cm (0.6 - 1) LVPWd (2D) 1.1 cm (0.6 - 1) LVIDd (2D) 4.6 cm (3.6 - 5.4) LVIDs (2D) 3 cm - LV FS (2D) 35 % (25 - 45) Aortic Annulus 2.1 cm (1.4 - 2.6) Ao root diameter (2D) 3.3 cm (2.1 - 3.5) Ascending Ao 3.5 cm (2.1 - 3.4) Aortic arch 2.5 cm (1.8 - 3.4) LA dimension (AP) 2D 3.4 cm (2.3 - 3.8) LAd ISD 4CH 5.1 cm (2.9 - 5.3) LA ISD 4CH W 3.5 cm (2.5 - 4.5) Name Value Normal Range LA ESV SP 4CH (A/L) 42 ml - LA ESV SP 2CH (A/L) 53 ml - LA ESV BP (A/L) 47 ml - LA ESV BP (A/L) index 20.5 ml/m2 - LA ESV SP 4CH (MOD) 39 ml - LA ESV SP 2CH (MOD) 50 ml - Name Value Normal Range MV E-wave Vmax 0.95 m/sec - MV deceleration time 92 msec - MV A-wave Vmax 0.72 m/sec - MV E:A ratio 1.3 ratio - LV septal e' Vmax 0.09 m/sec - LV lateral e' Vmax 0.08 m/sec - LV E:e' septal ratio 10.6 ratio - LV E:e' lateral ratio 11.9 ratio - Name Value Normal Range AV Vmax 1 m/sec - AV VTI 23.7 cm - AV peak gradient 4.2 mmHg - AV mean gradient 2.5 mmHg - LVOT Vmax 0.76 m/sec - LVOT VTI 19.1 cm - LVOT peak gradient 2.3 mmHg - LVOT mean gradient 1.4 mmHg - RASHMI Vmax 0.88 m/sec - Name Value Normal Range IVC diameter 2.4 cm - Name Value Normal Range PV Vmax 0.63 m/sec -
--- NOTE | 2017-11-08 11:36 | PN ---
Work Excuse - Work Note Work Note: The above employee has been evaluated on 11/08/17. The physician has instructed the employee concerning further work as described below. Mr. Feliciano was admitted to our facility on 11/06/17 and will be discharged today 11/08/17. He will need to recuperate at home for at least 2 days and may resume his duties on 11/10/17, with the caveat that he not operate any heavy machinery until re-evaluated by his PCP. Nagi Wong MD [id number]
--- NOTE | 2017-11-08 12:24 | CONS ---
NEUROLOGY CONSULTATION FOLLOWUP: DATE OF FOLLOWUP: 11/08/17. HOSPITALIST: Dr. Wong. LOCATION: He is an inpatient room 441. CHIEF COMPLAINT: Episode of loss of consciousness. INTERVAL HISTORY: Since yesterday Isaiah feels well. He has not had any episodes of double vision or episodes of loss of consciousness. He has been walking around the unit and feels steady on his feet. MEDICATIONS: Are reviewed and he is on: 1. Lovenox 40 mg subcu q. 24 hours. 2. Lisinopril 10 mg p.o. daily. 3. Sertraline 150 mg p.o. daily. 4. Tramadol 100 mg p.o. q. 8 hours as needed for pain. PHYSICAL EXAMINATION: On exam, he has been afebrile, most recent temperature 98.6. Blood pressure has been stable, last recorded one being 142/98, heart rate is the 60s. Eyes movements are full. Speech is clear. He is alert and oriented and a good historian with intact memory. LABORATORY DATA: From today includes, a normal CBC, normal chemistry profile. A transthoracic echocardiogram from 11/08/17 is an unremarkable transthoracic echocardiogram. There was mild concentric LVH. IMPRESSION: An episode of loss of consciousness of unclear etiology. He does not have any risk factors for seizures and his MRI and EEG are normal. I did recommend that he use his CPAP machine at home reliably. I discussed the case briefly with Dr. Martines and plan to get an event monitor for a couple of weeks. I will see him in followup in my office in 2 to 4 weeks. [id number]/[facility] #: [id number] [facility]
[2017-11-08 12:49] VITALS: BP 156/93
--- NOTE | 2017-11-08 13:13 | CONS ---
CC: Dr. Landry; Dr. Coffman * CARDIOLOGY CONSULTATION: DATE OF CONSULT: 11/08/17 INDICATION FOR CONSULTATION: Syncope. HISTORY OF PRESENT ILLNESS: The patient is a 36-year-old gentleman with a history of hypertension, borderline diabetes who had an episode of syncope. The patient and his reported that they were sitting at a table playing a board game when he became stiff and unresponsive and fall back in his chair; he was on the floor. The patient's was unable to do any vital signs. She was not trained for that and just starting pounding on his chest. The patient after about 10 seconds or so woke up, felt confused. His states that he was not quite himself for 30 seconds or so. No involuntary muscle movements. No loss of urine. No seizure- like activity. The patient afterwards just felt tired. He did not have any post event symptoms. The patient and both state that he was not quite himself through the day. He was having difficulty hanging pictures and word finding earlier in the day. The patient denies any cardiac history or cardiac symptoms. He denies any episodes of chest pain, shortness of breath. No orthopnea or PND. No palpitations. No lightheadedness , dizziness, or any other episodes of syncope. PAST MEDICAL HISTORY: Significant for: 1. Hypertension. 2. Renal calculi. 3. Depression. OUTPATIENT MEDICATIONS: 1. Lisinopril 5 mg a day. 2. Ibuprofen as needed. 3. Zoloft 150 mg a day. 4. Hydrocodone p.r.n. ALLERGIES: CODEINE, IODINE, and LATEX. SOCIAL HISTORY: He is . He works. He does not get any regular exercise. He denies tobacco use. Occasional marijuana use. FAMILY HISTORY: His father had a myocardial infarction at 28 with a bypass surgery at 32. REVIEW OF SYSTEMS: Unremarkable and as per his intake sheet. PHYSICAL EXAM: Height is 5 feet 8 inches, weight is 164 pounds. Temperature 98.6, blood pressure 142/98, heart rate is 65, respiratory rate is 16, oxygen saturation 99% on room air. Sclerae anicteric. Oropharynx is pink without erythema. Carotids are 2+ without bruits. JVD is normal. Thyroid is normal. Cardiac Exam: S1, S2 without any murmurs, rubs, or gallops. Lungs are clear to auscultation bilaterally. There is no dullness to percussion. Abdomen is soft , nontender, nondistended with normoactive bowel sounds. Extremities show no edema. He has 2+ pulses throughout. The patient is awake, alert and oriented. He moves all 4 extremities equally. DIAGNOSTIC STUDIES/LAB DATA: His echocardiogram shows normal LV size and systolic function, no valvular abnormalities. His laboratory studies are within normal limits. His EKG is normal. His telemetry showed no arrhythmias. The patient had an MRI and an EEG, which were normal per report from Dr. Landry. IMPRESSION: This is a 36-year-old gentleman who had a syncopal episode. It was a witnessed event as described above. The patient's cardiac evaluation is essentially unremarkable. At this point, the etiology of his syncopal episode is unknown. No clear evidence of seizure activity and no clear evidence of arrhythmia. RECOMMENDATIONS: My recommendation is to have him wear a 2-week monitor tech as an outpatient and then follow up with me. No medication changes are necessary. No other cardiac testing is necessary. This was discussed with Dr. Wong and Dr. Landry. [id number]/[facility] #: [id number] [facility] CENTERCesia
--- NOTE | 2017-11-08 15:32 | DS ---
CC: Dr. Harrison Barakat; Dr. Landry; Dr. Martines; Dr. Dr. Mp Coffman DISCHARGE SUMMARY: DATE OF ADMISSION: 11/06/17 DATE OF DISCHARGE: 11/08/17 DISCHARGE DIAGNOSES: 1. Syncopal episode with convulsive features. 2. Hypertension. 3. Depression. 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 This was a witnessed event and his mentioned that he was down for at least 30 seconds and when he came out of the event, he felt that he was confused. He mentions that he has had about 2 days of confusion. During the event, his family advised him to seek consultation in the ED; however, he refused. He presented 2 days later since he began having some double vision that started the morning of his admission. Hence, he was subsequently convinced by his family to go to the ER for further evaluation. He had a CT brain, cervical, lumbar and thoracic spine, which were all unremarkable for any acute abnormalities. He also had a brain MRI done on 11/06/17, which did not show evidence of any lesions that would account for any possible seizure-like activity. An EEG was done on 11/07/17 and was interpreted by Dr. Landry and the impression was that it was a normal awake EEG. He was also ruled out for ACS and pulmonary embolism respectively with negative troponin x3 and a normal D -dimer on presentation. In the ED, an order for orthostatic vital signs was done and he was found not to be orthostatic. Dr. Landry, upon consultation and reviewing pertinent data as well as EEG described above, believes that his loss of consciousness was likely due to syncopal episode with convulsive features. However, it is concerning that the patient was complaining of some confusion after the event which could certainly be consistent with a possible syncopal episode. However, as mentioned, his extensive workup did not show any reason for his syncope. His telemetry was reviewed and he was also seen in consultation by Dr. Martines for the question of whether he will need an event loop recorder prior to discharge. Dr. Martines mentions that he will set this up for the patient on discharge and hence, we will defer. The patient requested a work excuse letter and this was provided to him in person prior to his discharge and it was signed and appropriately dated. He was advised to follow up and/or call his PCP within 3 days post discharge and to call [facility] if his PCP cannot see him any sooner if he is having problems and that both of them have to agree that he will need to be seen sooner. He was advised to follow up with Dr. Martines's office regarding the results of his event loop recorder once it has been initiated. Dr. Martines mentions that he will call the patient if he sees something concerning; however , the patient was given Dr. Martines's office number at [phone] to follow up on the results at a reasonable time. The patient was also advised to follow up with Dr. Landry in 2 to 4 weeks and to confirm and/or make his appointment at number [phone]. He was advised to take tramadol as needed and Tylenol for pain medications as other opiates may further increase the chances of interacting with other medications and can further cause confusion and might further increase the chances of future syncope of unknown cause. He was advised to contact his PCP if he requires any refill of his pain meds. He was advised to not drive alone and/or drive himself and/or handle heavy equipment until his full workup is completed. He was advised to call my office regarding any questions, concerns or further clarifications regarding his discharge plans and prescriptions. He is aware that I will not be in service for this upcoming week, but there are some of my colleagues who would be able to help him and he understands this. He was also advised to take his medications as prescribed. DISCHARGE MEDICATIONS: 1. Lisinopril 15 mg p.o. daily. 2. Sertraline 150 p.o. daily. 3. Tramadol 50 mg tablet p.o. q.8 p.r.n. for 3 days. 4. Tylenol 650 mg p.o. q.6 p.r.n. PHYSICAL EXAMINATION: Reveals the most recent vital signs of record with blood pressure of 142/98, 65 beats per minute heart rate, 16 per minute respiratory rate, saturating at 99%. General Appearance: The patient is awake, alert and oriented x3, not in acute distress. HEENT: Normocephalic, atraumatic. PERRLA. Extraocular muscles intact. Negative for icterus. Moist oral mucosa. Negative throat erythema. Neck is soft, supple, with no cervical lymphadenopathy, no JVD. TIME SPENT: The total time spent evaluating the patient, reviewing pertinent data, and appropriate documentation is greater than 30 minutes. [id number]/[facility] #: [id number] MTDD
== END 2017-11-08 12:45 | disposition home or self-care (01) ==
LOC: ED 14:44 → MEDTELE 18:31
PROVIDERS: ADMIT Student in an Organized Health Care Education/Training Program; ATTEND Student in an Organized Health Care Education/Training Program
DX: R55 Syncope and collapse (principal); R41.0 Disorientation, unspecified; R56.9 Unspecified convulsions; I10 Essential (primary) hypertension; F32.9 Major depressive disorder, single episode, unspecified; E78.00 Pure hypercholesterolemia, unspecified; I51.7 Cardiomegaly; Z87.442 Personal history of urinary calculi; Z88.8 Allergy status to other drugs, medicaments and biological substances; Z82.49 Family history of ischemic heart disease and other diseases of the circulatory system; Z79.899 Other long term (current) drug therapy
CPT/HCPCS: 36415; 70450; 70553; 72125; 72128; 72131; 80048; 80053; 80061; 83605; 83735; 84100; 84146; 84443; 84484; 85025; 85379; 85652; 86140; 93005; 93306; 95816; 96361; 96372; 96374; 96375; 96376; 99285; A9270-GY; A9579; G0378; J1650; J1885; J2405